=== PATIENT | male | born 1955 | race Caucasian/White ===

== ENCOUNTER 2019-02-26 07:40 | Inpatient (IN) | payer OTHER ==
[2019-02-26] VITALS (17 sets, daily range): BP systolic 101–159; BP diastolic 49–75
[~2019-02-26] VITALS: Ht 170.2 cm; Wt 66.8 kg
[~2019-02-26 07:40] MED LIST: ALDACTONE25 MG PO; ASPIRIN325 PO; CIPROFLOXACIN500 M3 PO; CRESTOR10 MG PO; EFFIENT10 MG PO; LISINOPRIL2.5 MG PO; NITROGLYCERIN0.4 MG
[2019-02-26 08:03] LABS: ABSOLUTE BASOPHILS 0.2 thou/uL (0.0-0.2); ABSOLUTE EOSINOPHILS 0.4 thou/uL (0.0-0.7); ABSOLUTE LYMPHOCYTES 5.4 thou/uL (0.8-5.3); ABSOLUTE MONOCYTES 1.2 thou/uL (0.0-1.2); ABSOLUTE NEUTROPHILS 4.5 thou/uL (1.6-8.1); BASOPHILS 1.5 %; EOSINOPHILS 3.5 %; HEMATOCRIT 45.2 % (42.0-52.0); HEMOGLOBIN 15.3 gm/dL (14.0-18.0); LYMPHOCYTES 45.9 %; MCH 33.2 pg (26.0-34.0); MCHC 33.8 g/dL (28.0-37.0); MCV 98.4 fL (80.0-100.0); MONOCYTES 10.3 %; NUCLEATED RBCS 0 /100WBC; PLATELET COUNT* 318 thou/uL (150-400); POLYS 38.8 %; RBC 4.59 mil/uL (4.50-6.00); RDW-CV 13.4 % (10.5-14.5); WBC 11.7 thou/uL (4.0-11.0)
[2019-02-26 08:15] LABS: APTT 21.4 Seconds (25.0-31.3); INR 1.1; PROTIME 10.9 Seconds (9.20-11.50)
[2019-02-26 08:55] LABS: ALBUMIN 2.7 g/dL (3.4-5.0); CALCIUM 7.9 mg/dL (8.5-10.1); CREATININE 1.1 mg/dL (0.6-1.3); MAGNESIUM 1.8 mg/dL (1.8-2.4); POTASSIUM 3.7 mmol/L (3.5-5.1); TOTAL BILIRUBIN 0.3 mg/dL (<0.1-1.0); TOTAL PROTEIN 5.3 g/dL (6.4-8.2)
--- NOTE | 2019-02-26 09:40 | NUR ---
PT ARRIVED TO ROOM ICU 6 VIA CART. GROIN SITE WITHOUT HEMATOMA OR BLEEDING. ANGIOSEAL IN PLACE. PLACED ON MONITOR-NSR. IVF INFUSING. PT INSTRUCTED ON BEDREST UNTIL 1308. CALL LIGHT WITHIN REACH. PT GIVEN URINAL
--- NOTE | 2019-02-26 17:10 | NUR ---
PT TO UNIT THIS AM FROM [facility]. PT REPORTS OCASSIONAL CHEST PAIN CONTROLLED WITH PO MEDS. NSR ON MONITOR. CATH SITE WITHOUT BLEEDING OR HEMATOMA. PT SITTING UP IN BED THIS PM. TOLERATING PO WELL. VOIDING PER URINAL
--- NOTE | 2019-02-26 17:10 | 2DMMODE ---
[place] [address] 2 D/M-MODE ECHOCARDIOGRAM Name: DANA RICO Room: 006P [facility] IN [facility]#: [id number] Admission: 02/26/19 Attend Phys: Winston Alatorre, Discharge: Date of : 53 Date of Service: 02/26/19 1710 Report #: [id number] THIS REPORT FOR: //name// APPROVED REPORT Study performed: 02/26/2019 10:26:01 EXAM: Comprehensive 2D, Doppler, and color-flow Echocardiogram Patient Location: In-Patient Room #: 006 Status: routine BSA: 1.78 HR: 73 bpm BP: 146/83 mmHg Rhythm: NSR Other Information Study Quality: Good Indications Acute FL 2D Dimensions IVSd: 11.56 (7-11mm) LVOT Diam: 19.91 (18-24mm) LVDd: 58.17 mm PWd: 9.75 (7-11mm) Ascending Ao: 36.12 (22-36mm) LVDs: 37.32 (25-40mm) Aortic Root: 33.16 mm Volumes Left Atrial Volume (Systole) LA ESV Index: 40.80 mL/m2 Aortic Valve AoV Peak Rolando.: 1.49 m/s AO Peak Gr.: 8.89 mmHg LVOT Max P.52 mmHg AO Mean Gr.: 4.59 mmHg LVOT Mean P.10 mmHg LVOT Max V: 1.06 m/s AO V2 VTI: 22.80 cm LVOT Mean V: 0.66 m/s OSWALD (VTI): 2.52 cm2 LVOT V1 VTI: 18.41 cm Mitral Valve E/A Ratio: 2.14 MV Decel. Time: 190.62 ms MV E Max Rolando.: 1.13 m/[place] [address] 2 D/M-MODE ECHOCARDIOGRAM Name: DANA RICO Room: [address] IN .R.#: [id number] Admission: 02/26/19 Attend Phys: Winston Alatorre, Discharge: Date of : 53 Date of Service: 02/26/19 1710 Report #: [id number] MV PHT: 55.28 ms MVA (PHT): 3.98 cm2 TDI E/Lateral E': 8.07 E/Medial E': 9.42 Medial E' Rolando.: 0.12 m/s Lateral E' Rolando.: 0.14 m/s Pulmonary Valve PV Peak Rolando.: 0.75 m/s PV Peak Gr.: 2.22 mmHg Tricuspid Valve RAP Estimate: 5.00 mmHg TR Peak Gr.: 21.01 mmHg RVSP: 26.00 mmHg PA Pressure: 26.00 mmHg Left Ventricle The left ventricle is normal size. There is normal LV segmental wall motion. There is normal left ventricular wall thickness. Left ventricular systolic function is normal. The left ventricular ejection fraction is within the normal range. LVEF is 60-65%. Right Ventricle The right ventricle is normal size. The right ventricular systolic function is normal. Atria Left atrium is mildly dilated. The right atrium size is normal. Aortic Valve Mild aortic valve sclerosis. No aortic regurgitation is present. There is no aortic valvular stenosis. Mitral Valve Mitral valve leaflets are mildly thickened. There is moderate mitral valve prolapse Moderate to severe mitral regurgitation No evidence of mitral valve stenosis. Posterior mitral valve leaflet prolapses. Tricuspid Valve The tricuspid valve is normal in structure. Mild tricuspid regurgitation. No pulmonary hypertension. Pulmonic Valve The pulmonary valve is normal in structure. [place] [address] 2 D/M-MODE ECHOCARDIOGRAM Name: DANA RICO AWILDA Room: [address] IN [facility]#: [id number] Admission: 02/26/19 Attend Phys: Winston Alatorre, Discharge: Date of : 53 Date of Service: 02/26/19 1710 Report #: [id number] regurgitation. Great Vessels The aortic root is normal in size. IVC is normal in size and collapses >50% with inspiration. Pericardium There is no pericardial effusion. <Conclusion> The left ventricle is normal size. There is normal left ventricular wall thickness. Left ventricular systolic function is normal. The left ventricular ejection fraction is within the normal range. LVEF is 60-65%. The right ventricle is normal size. Left atrium is mildly dilated. Mild aortic valve sclerosis. No aortic regurgitation is present. There is no aortic valvular stenosis. Mitral valve leaflets are mildly thickened. There is moderate mitral valve prolapse Moderate to severe mitral regurgitation No evidence of mitral valve stenosis. The tricuspid valve is normal in structure. IVC is normal in size and collapses >50% with inspiration. There is no pericardial effusion. There is normal LV segmental wall motion. Posterior mitral valve leaflet prolapses. <ELECTRONICALLY SIGNED> By: Philip Jama MD, FACC 02/26/191709 09 09 Philip Jama MD, FACC /INF
--- NOTE | 2019-02-26 18:05 | EKG ---
[place] [address] ELECTROCARDIOGRAM REPORT Name: JACKYDANA Room: [address] ADM IN M.R.#: [id number] Admission: 02/26/19 Attend Phys: Winston Alatorre MD Discharge: Date of : 53 Report #: [id number] THIS REPORT FOR: //name// [facility] ED Test Date: 2019-02-26 Test Time: 07:44:23 Pat Name: DANA RICO Department: Room: [facility] Gender: M Certified Nurses' Aide: EV : 1955 Requested By: Wicho Choudhury Order Number: [id number] MD: Angelo Duran Measurements Intervals [place] Rate: 63 P: 70 [place]: 141 QRS: 51 QRSD: 135 T: 53 QT: 466 QTc: 478 Interpretive Statements Sinus rhythm Right bundle branch block Compared to ECG 01/05/2011 08:03:12 Right bundle-branch block now present T-wave abnormality no longer present Possible ischemia no longer present Electronically Signed On 02-26-2019 18:04:54 CDT by Angelo Duran [email or web address] <ELECTRONICALLY SIGNED> By: Angelo Duran MD, FACC 02/26/19 1804 0744 0744 Angelo Duran MD, [facility] /EPI
--- NOTE | 2019-02-26 18:06 | EKG ---
[place] [address] ELECTROCARDIOGRAM REPORT Name: JACKYDANA Room: [address] ADM IN M.R.#: [id number] Admission: 02/26/19 Attend Phys: Winston Alatorre MD Discharge: Date of : 53 Report #: [id number] THIS REPORT FOR: //name// [facility] Test Date: 2019-02-26 Test Time: 09:55:19 Pat Name: DANA RICO Department: Room: [address] Gender: M Taxation Consultant: : 1955 Requested By: Winston Alatorre Order Number: [id number] Marivel MD: Angelo Duran Measurements Intervals [place] Rate: 71 P: 65 [place]: 161 QRS: 45 QRSD: 134 T: 31 QT: 429 QTc: 467 Interpretive Statements Sinus rhythm Right bundle branch block Electronically Signed On 02-26-2019 18:06:03 CDT by Angelo Duran [email or web address] <ELECTRONICALLY SIGNED> By: Angelo Duran MD, [facility] 02/26/19 1806 0955 0955 Angelo Duran MD, FACC /EPI
[2019-02-26] MEDS ORDERED: FISH OIL 1,0001 EAC9 PO (19:06)
[2019-02-26] MEDS ORDERED: MULTI VITAMIN1 EACH PO (19:06)
[2019-02-26] MEDS ORDERED: VITAMIN B-121000 MC2 SUBLING (19:10)
[2019-02-27] VITALS (9 sets, daily range): BP systolic 92–116; BP diastolic 56–70
--- NOTE | 2019-02-27 05:25 | NUR ---
ASSUMED CARE AT 1900H, ON ROOM AIR AND TOLERATED. NO CHEST PAIN NOTED. PT HAD ONLY BACK NECK AND RIGHT SHOULDER PAIN, PRN MED GIVEN. PT EXPRESSED HE WANTED TO GO HOME TODAY. NO BLEEDING AND HEMATOMA NOTED AT THE PUNCTURE SITE. CONTINUE MONITORING AND TOWARD GOALS. CALLLIGHT WITHIN REACH.
--- NOTE | 2019-02-27 10:50 | NUR ---
PATIENT LEFT AMA ADVISED TO STAY NEEDS FURTHER WORKUP FOR LAD STENOSIS ADVISED OF EXTREME MORBITITY. 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
--- NOTE | 2019-02-27 11:14 | NUR ---
ICU rounds: Pt choosing to dc AMA. SW met with pt to provide community resources/financial resources. Pt was receptive to information.
--- NOTE | 2019-02-27 11:40 | NUR ---
DR MARISCAL ATTEMPTED CONTACT WITH PATIENT TO GIVE PRESCRIPTIONS FROM OFFICE.
--- NOTE | 2019-02-27 12:03 | H ---
[address] [address] HISTORY AND PHYSICAL Name: JACKYDANA AWILDA Room: [address] IN M.R.#: [id number] Admission: 02/26/19 Attend Phys: Winston Alatorre MD Discharge: 02/27/19 Date of : 53 Report #: [id number] THIS REPORT FOR: //name// CC: [facility] physician/PCP Winston Alatorre CARDIOLOGY ADMISSION HISTORY AND PHYSICAL INDICATION: Acute inferior wall ST-elevation myocardial infarction. HISTORY OF PRESENT ILLNESS: The patient is a 63-year-old gentleman with history of coronary artery disease. He has had previous percutaneous coronary intervention and stent placement to the proximal circumflex coronary artery. The patient has been having intermittent chest pain for the last 2 days. This morning, the pain was midsternal and radiated to his back and left arm. He called EMS. EKG on scene showed acute inferior wall ST-elevation myocardial infarction. The patient was brought to the Emergency Room and promptly brought to the cardiac catheterization lab. He was found to have a 99% stenosis of the mid dominant circumflex coronary artery, for which he underwent drug-eluting stent placement. Distal margin required a second stent. The patient had excellent angiographic result and resolution of the majority of his discomfort. The patient was transferred to the ICU for continued evaluation. Of note, the catheterization showed significant mid LAD disease, to be addressed in staged fashion. CARDIAC RISK FACTORS: Hyperlipidemia. PAST MEDICAL HISTORY: 1. Coronary artery disease. 2. Hyperlipidemia. 3. Double hernia surgery in 1984. 4. Sinus surgery in 1999. 5. Skin cancer removal 6 months ago. CURRENT MEDICATIONS: None. ALLERGIES: None. FAMILY HISTORY: Noncontributory. SOCIAL HISTORY: The patient denies use of tobacco or alcohol. REVIEW OF SYSTEMS: The patient reports chest pain. PHYSICAL EXAMINATION: VITAL SIGNS: Blood pressure 101/61, pulse 64[place] [address] HISTORY AND PHYSICAL Name: DANA RICO AWILDA Room: [address]#: [id number] Admission: 02/26/19 Attend Phys: Winston Alatorre MD Discharge: 02/27/19 Date of : 53 Report #: [id number] GENERAL: This is a 63-year-old gentleman who appears in acute discomfort on arrival, now comfortable. HEENT: Extraocular muscles intact. Mucous membranes are moist. NECK: Shows no jugular venous distention. There are no carotid bruits. CHEST: Reveals clear lung renner. CARDIOVASCULAR: Reveals regular rhythm without gallop or murmur. ABDOMEN: Reveals normal bowel sounds. The abdomen is soft, nontender. EXTREMITIES: Shows no edema. Peripheral pulses 2+ and palpable. IMPRESSION AND RECOMMENDATIONS: 1. Acute inferior wall ST-elevation myocardial infarction, status post drug-eluting stent placement. We will start Plavix and aspirin. We will obtain echocardiogram to evaluate underlying cardiac structure and function. We will start low dose beta-gilmar as tolerated. 2. Dyslipidemia. Start atorvastatin 40 mg daily. <ELECTRONICALLY SIGNED> By: Winston Alatorre MD, FACC 02/27/19 1203 0944 [id number] Alatorre MD, FACC /nt
--- NOTE | 2019-03-13 15:07 | CARD ---
[address] [address] CARDIAC CATH REPORT Name: DANA RICO AWILDA Room: [address] IN [facility]#: [id number] Admission: 02/26/19 Attend Phys: Winston Alatorre MD Discharge: 02/27/19 Date of : 53 Report #: [id number] THIS REPORT FOR: //name// ADDENDUM APPROVED REPORT Study performed: 02/26/2019 07:38:34 Patient Details Patient Status: In-Patient Room #: The patient is a 63 year-old male Event Personnel Winston Alatorre Literacy Consultant, Philip Jama Utility Maintenance Worker, Abby Rubio RN Hand Packer/Packager, Ghanshyam Obrien Scrub, Marta Marquez RTR Monitor, Silke Diop Hand Packer/Packager Procedures Performed Art Access - R femoral artery, Left Heart Cath w/or w/o Coronaries , LHC MING Place w/wo Plasty Single OM, Hemostasis w/ Angioseal Indication Abnormal ECG, Non-STEMI Admission/Lab Medications/Medications given during procedure Oxygen Nasal cannula 2 l per min, Heparin IV 5000 units, Lidocaine Subcut 15 ml, Angiomax IV bolus 10 mg per kg, Angiomax Drip IV 23.1 ml per hr, Fentanyl IV 50 mcg total, Plavix PO 600 mg, Aspirin PO 162 mg Procedure Narrative The patient was brought emergently to the Cardiac Catheterization Laboratory and was prepped and draped in a sterile manner. The right femoral was infiltrated with 2% Lidocaine subcutaneous anesthesia. A 6F [place] sheath was inserted into the right femoral artery. Coronary angiography was performed using coronary diagnostic catheters. The right coronary system was accessed and visualized with a 5F JL4 catheter. The left coronary system was accessed and visualized with a 5F JR4 catheter. The left ventricle was accessed and visualized with a 5F PIGTAIL catheter. The patient tolerated the procedure well and there were no complications associated with the procedure. Intraoperative Conscious Sedation Sedation start time: 08:18 Case end Time: [place] [address] CARDIAC CATH REPORT Name: DANA RICO Room: [address] IN [facility].#: [id number] Admission: 02/26/19 Attend Phys: Winston Alatorre MD Discharge: 02/27/19 Date of : 53 Report #: [id number] 09:07 Fentanyl 50 mcg Fluoro Time: 19.3 minutes Dose: DAP 560459 cGycm2 1644 mGy Contrast Type and Amount: Visipaque 380 ml Diagnostic Cath Left Main Normal. LAD Moderately plaqued proximally. There is a 90% stenosis after the takeoff of a second diagonal branch. Diagonal 1 Free of significant disease. Diagonal 2 Free of significant disease. Circumflex There is a widely patent stents in the proximal circumflex after which there is a 90% stenosis of the mid circumflex coronary artery. Tubular 70 percent narrowing of the distal circumflex. OM1 Preoperative significant disease. OM2 Free of significant disease. L PDA Free of significant disease. L MUSA Previous significant disease. Right Coronary Nondominant. Normal. Left Ventriculography Ejection Fraction was 55-60% based off patient's . Hemodynamics The aortic pressure is 116/59 mmHg with a mean of 84 mmHg. The left ventricular pressure is 105 mmHg with a mean of mmHg. The left ventricular end diastolic pressure is 10 mmHg. PCI Technique Lesion Anticoagulation was achieved with Heparin. Patient was preloaded with Heparin IV 5000 units. Percutaneous coronary intervention was performed on the second obtuse marginal branch segment. The lesion stenosis prior to intervention was 90% with TABBY 2 flow. A 6FR LAUNCHER EBU 3.5 Guide Catheter was used to engage the ostium. A BMW 190cm Interventional Guidewire was used to cross the lesion. BALLOON DILATION A Balloon catheter Mini Trek RX 2.0 X 12 was inserted and inflated up to 15.00atm for 14seconds. Additional Inflation: 14.00atm for 7seconds. Additional Inflation: 17.00atm for 9seconds. 2ND INTERVENTIONAL WIRE PROWATERFLEX 180CM ADVANCED [place] [address] CARDIAC CATH REPORT Name: DANA RICO Room: [address] IN M.R.#: [id number] Admission: 02/26/19 Attend Phys: Winston Alatorre MD Discharge: 02/27/19 Date of : 53 Report #: [id number] STENT DEPLOYMENT A drug-eluting stent Resolute [place] RX 2.5X18,2.25x8 was inserted and inflated up to 15atm for 14seconds. Additional Inflation: 15.00atm for 7seconds. Additional Inflation: 16.00atm for 8seconds. POST STENT DEPLOYMENT BALLOON DILATION A Balloon catheter Mini Trek RX 2.0 X 8 was inserted and inflated up to 12.00atm for 6seconds. Additional Inflation: 10.00atm for 4seconds. Additional Inflation: 14.00atm for 6seconds. Final angiography reveals 0 % stenosis with TABBY 3 flow. POST STENT DEPLOYMENT BALLOON DILATION A Balloon catheter was inserted and inflated up to 18.00atm for 11seconds. Additional Inflation: gabriela for 6seconds. PCI Technique Lesion 2 Percutaneous Coronary Intervention was performed on the mid circumflex artery segment. The lesion stenosis prior to intervention was 90% with TABBY 2 flow. Stent Deployment A drug-eluting stent Resolute RX 2.5X8 was inserted and inflated up to 16atm for 15seconds. Post Stent Deployment Balloon Dilation A Balloon catheter NC Trek RX 2.75 X 8 was inserted and inflated up to 16atm for 10seconds. Final angiography reveals 5 % stenosis with TABBY 3 flow. PCI Technique Lesion Percutaneous coronary intervention was performed on the distal circumflex artery segment. The lesion stenosis prior to intervention was 90% with TABBY 2 flow. BALLOON DILATION A Balloon catheter Mini Trek RX 2.0 X 8 was inserted and inflated up to 16atm for 15seconds. Final angiography reveals 20 % stenosis with TABBY 3 flow. Conclusion 1. Critical narrowing of the proximal circumflex coronary artery after a patent stent. (Culprit lesion) [address] [address] CARDIAC CATH REPORT Name: DANA RICO Room: [address] IN M.R.#: [id number] Admission: 02/26/19 Attend Phys: Winston Alatorre MD Discharge: 02/27/19 Date of : 53 Report #: [id number] 2. 90% narrowing of the mid left anterior descending coronary artery. 3. Nondominant right coronary artery. 4. Preserved left ventricular systolic function. 5. Normal left ventricular end-diastolic pressure. 6. Widely patent stent in the proximal circumflex coronary artery. 7. Successful PCI to the mid CX into a prominent 2nd marginal with 0% residual after MING deployment 8. Successful PTCA of the distal CX thru the mid CX stent with 20% residual marrowing Recommendations 1. Aggressive medical management and risk factor modification. 2. Percutaneous coronary intervention to the proximal circumflex coronary artery. 3. Consider staged procedure to the mid left anterior descending coronary artery. Medications Administered Aspirin (any) Prasugrel Diagnostic Cath Approved by: Winston Alatorre MD Date/Time: 02/26/2019 17:45:49 <ELECTRONICALLY SIGNED> By: Philip Jama MD, FACC 03/13/19 1506 1506 1506Philip Jama MD, FAC /INF
== END 2019-02-27 10:30 | disposition left against medical advice (07) | DRG 247 ==
LOC: M.ERS 07:40 → M.ICU 08:08 → M.TBA-CV 08:08 → M.ICU 09:32
PROVIDERS: Emergency Medicine Emergency Medical Services; ADMIT Internal Medicine Cardiovascular Disease
DX: I21.19 ST elevation (STEMI) myocardial infarction involving other coronary artery of inferior wall (principal); I25.2 Old myocardial infarction; E78.5 Hyperlipidemia, unspecified; I25.10 Atherosclerotic heart disease of native coronary artery without angina pectoris; Z95.5 Presence of coronary angioplasty implant and graft; Z85.828 Personal history of other malignant neoplasm of skin

== ENCOUNTER 2019-05-10 18:30 | Inpatient (IN) | payer OTHER ==
[~2019-05-10] VITALS: Ht 170.2 cm; Wt 70.8 kg
[~2019-05-10 18:30] MED LIST changes: +FISH OIL 1,0001 EAC9 PO; +MULTI VITAMIN1 EACH PO; +VITAMIN B-121000 MC2 SUBLING
[2019-05-10 18:32] VITALS: BP 120/81
[2019-05-10 19:24] LABS: ABSOLUTE BASOPHILS 0.1 thou/uL (0.0-0.2); ABSOLUTE EOSINOPHILS 0.3 thou/uL (0.0-0.7); ABSOLUTE LYMPHOCYTES 2.7 thou/uL (0.8-5.3); ABSOLUTE MONOCYTES 1.1 thou/uL (0.0-1.2); ABSOLUTE NEUTROPHILS 8.9 thou/uL (1.6-8.1); BASOPHILS 0.8 %; EOSINOPHILS 2.4 %; HEMATOCRIT 43.8 % (42.0-52.0); LYMPHOCYTES 20.4 %; MCH 32.8 pg (26.0-34.0); MCHC 34.3 g/dL (28.0-37.0); MCV 95.8 fL (80.0-100.0); MONOCYTES 8.5 %; MPV 9.7 fl. (7.2-11.1); NUCLEATED RBCS 0 /100WBC; PLATELET COUNT* 231 thou/uL (150-400); POLYS 67.9 %; RBC 4.57 mil/uL (4.50-6.00); RDW-CV 13.2 % (10.5-14.5); WBC 13.1 thou/uL (4.0-11.0)
[2019-05-10 19:43] LABS: CALCIUM 8.6 mg/dL (8.5-10.1); CREATININE 1.6 mg/dL (0.6-1.3); POTASSIUM 4.4 mmol/L (3.5-5.1)
[2019-05-10 19:56] LABS: ALBUMIN 3.3 g/dL (3.4-5.0); MAGNESIUM 1.6 mg/dL (1.8-2.4); TOTAL BILIRUBIN 0.6 mg/dL (<0.1-1.0); TOTAL PROTEIN 6.4 g/dL (6.4-8.2)
[2019-05-10 22:33] VITALS: BP 105/74
[2019-05-10 22:52] VITALS: BP 105/66
[2019-05-10 23:00] VITALS: BP 95/64
[2019-05-11] VITALS (25 sets, daily range): BP systolic 88–120; BP diastolic 43–71
--- NOTE | 2019-05-11 00:03 | NUR ---
PT. ADMITTED TO ROOM 2 AT 2240, AMIODARONE GTT INFUSING. PT. IS ALERT AND ORIENTED, ABLE TO AMBULATE STAND BY ASSIST. PT. STATED HE IS "TERRIFIED" OF NEEDLES AND LEFT AMA LAST HOSPITAL STAY IN JANUARY DUE TO ALL THE NEEDLESTICKS, STATED HE JUST GOT UP AND LEFT BECAUSE HE HAD HAD ENOUGH. INFORMED HIM THAT WE WILL DO ALL WE CAN TO AVOID ANY UNNECCESSARY NEEDLESTICKS. PT. IS SINUS RHYTHM ON HELP DESK ANALYST SINCE ADMISSION TO ICU. ADMISSION ASSESSMENT/INFORMATION COMPLETE, SEE COMPUTER CHARTING. ORIENTED TO ROOM. WILL CONTINUE TO MONITOR.
[2019-05-11 09:48] LABS: ANION GAP 9 mmol/L (7-16); BUN 14 mg/dL (7-18); CALCIUM 7.5 mg/dL (8.5-10.1); CHLORIDE 107 mmol/L (98-107); CHOLESTEROL 98 mg/dL (<200); CO2 25 mmol/L (21-32); CREATININE 1.1 mg/dL (0.6-1.3); GLUCOSE 98 mg/dL (70-99); HDL CHOLESTEROL 39 mg/dL (>40); LDL CHOLESTEROL 36 mg/dL (<100); MAGNESIUM 2.1 mg/dL (1.8-2.4); POTASSIUM 3.8 mmol/L (3.5-5.1); SODIUM 141 mmol/L (136-145); TC:HDL 2.5 Ratio (Not establshd); TRIGLYCERIDE 115 mg/dL (<150); TROPONIN-I LEVEL 0.15 ng/mL (<0.06); VLDL 23 mg/dL (<40)
[2019-05-11 10:03] LABS: SERUM ASSESSMENT Clear
--- NOTE | 2019-05-11 11:07 | NUR ---
CM ASSESSMENT: VISITED WITH PT IN ROOM. PT STATES HE LIVES BY HIMSELF. HE REPORTS HE HAS NOT WORKED SINCE JAN WHEN HE WAS IN THE HOSPITAL. HE SAYS " I KNOW THAT I NEED TO GO TO THE MEDICARE OFFICE AND FILE FOR SSI BUT I AM TOO DEPRESSED TO EVEN GET OUT OF BED". PT REPORTS HE HAS BEEN SELLING A FEW CARS THAT HE OWNED TO PAY HIS RENT AND BUY MEDICATIONS. PT STATES THAT HE HAS HAD LEFT ARM NUMBNESS/TINGLING,LEFT FACIAL WEAKNESS AND "CONFUSION" INTERMITTENTLY FOR THE LAST 4 DAYS AND BLOOD IN HIS STOOLS. STATES HE FORGOT TO TELL DR TOMLINSON THIS AM. DR TOMLINSON AND NURSE DEA NOTIFIED. PT REPORTS LEFT LEG PAIN FOR THE LAST 2 MONTHS THAT EFFECTS HIS ABILITY TO PERFORM ADLS AND HIS ABILITY TO AMBULATE LONGER DISTANCES. PT REPORTS ANXIETY OVER RELATIONSHIP WITH HIS DAUGHTER AND HIS HEALTH CONCERNS "I KNOW I AM PROBABLY DYING OF CANCER". PT REPORTS HE IS COMPLIANT WITH ALL OF HIS MEDICATIONS BUT IS CONCERNED THAT "THE LITTLE WHITE ONE" MAKES HIM COUGH. WILL CALL PHARMACY TO VERIFY MEDS.
--- NOTE | 2019-05-11 11:13 | EKG ---
[place] [address] ELECTROCARDIOGRAM REPORT Name: JACKYDANAADONAY KAISER Room: [address] ADM IN M.R.#: [id number] Admission: 05/10/19 Attend Phys: Pablito Marrero Discharge: Date of : 53 Report #: [id number] THIS REPORT FOR: //name// [facility] ED Test Date: 2019-05-10 Test Time: 18:30:15 Pat Name: DANA RICO Department: Room: [facility] Gender: M Emergency Medical Technician/Driver: : 1955 Requested By: Wicho Choudhury Order Number: [id number] MD: Angelo Duran Measurements Intervals [place] Rate: 143 P: [place]: QRS: 48 QRSD: 121 T: 4 QT: 313 QTc: 483 Interpretive Statements Atrial fibrillation with pvc Right bundle branch block Borderline ST depression, lateral leads Compared to ECG 02/26/2019 09:55:19 ST (T wave) deviation now present Sinus rhythm no longer present Electronically Signed On 05-11-2019 11:12:51 BIOLOGY FACULTY MEMBER by Angelo Duran [email or web address] <ELECTRONICALLY SIGNED> By: Angelo Duran MD, FAC 05/11/19 1112 1830 1830 Angelo Duran MD, [facility] /EPI
--- NOTE | 2019-05-11 11:20 | EKG ---
[place] [address] ELECTROCARDIOGRAM REPORT Name: JACKYDANA Room: [address] ADM IN M.R.#: [id number] Admission: 05/10/19 Attend Phys: Pablito Marrero Discharge: Date of : 53 Report #: [id number] THIS REPORT FOR: //name// [facility] Test Date: 2019-05-11 Test Time: 07:56:12 Pat Name: DANA RICO Department: Room: [address] Gender: M Burnisher And Bumper: : 1955 Requested By: Ghanshyam Mcmahon Order Number: [id number] Marivel MD: Angelo Duran Measurements Intervals [place] Rate: 57 P: 60 [place]: 169 QRS: 27 QRSD: 135 T: -18 QT: 471 QTc: 459 Interpretive Statements Sinus bradycardia Right bundle branch block Electronically Signed On 05-11-2019 11:19:45 PHOTOSTAT OPERATOR HELPER by Angelo Duran [email or web address] <ELECTRONICALLY SIGNED> By: Angelo Duran MD, [facility] 05/11/19 1119 0756 0756 Angelo Duran MD, FACC /EPI
[2019-05-11] MEDS ORDERED: PLAVIX 75 MG TA75 M1 PO (11:49)
[2019-05-11] MEDS ORDERED: METOPROLOL TART25 MG PO (11:50)
[2019-05-11] MEDS ORDERED: LIPITOR40 MG PO (11:50)
[2019-05-11] MEDS ORDERED: NITROGLYCERIN0.4 MG SUBLING (11:51)
[2019-05-11] MEDS ORDERED: ZANTAC 150MG T150 M1 PO (11:52)
[2019-05-11 16:40] LABS: URINE BILIRUBIN NEGATIVE (Negative); URINE BLOOD NEGATIVE (Negative); URINE CLARITY CLEAR; URINE COLOR YELLOW; URINE GLUCOSE-RANDOM NEGATIVE (Negative); URINE KETONES NEGATIVE (Negative); URINE LEUKOCYTES-REFLEX NEGATIVE (Negative); URINE NITRITE-REFLEX NEGATIVE (Negative); URINE PROTEIN NEGATIVE (Negative); URINE UROBILINOGEN 0.2 E.U./dl (0.2-1.0)
--- NOTE | 2019-05-11 18:56 | NUR ---
VSS, ASSUMED CARE OF PT FROM ICU, PT IN BED WITH CALL LIGHT IN REACH,
[2019-05-12] VITALS (7 sets, daily range): BP systolic 101–125; BP diastolic 58–74
--- NOTE | 2019-05-12 03:14 | NUR ---
PT ALERT ORIENTED. TELE PSYC CONSULT TOOK PLACE THIS SHIFT IN ROOM. TYLENOL GIVEN FOR PAIN. NIHSS 1. PT HAD SOME FACIAL NUMBNESS. HE SAID HE WAS HAVING TROUBLE MOVING HIS MOUTH. NO ABNORMALITIES NOTED. SMILE STRAIGHT NO FLATNING OF THE NASOLABIAL FOLD. PT STATES ANXIETY. PT STATES HIS PRIMARY DR TWO YEARS AGO AND HE HAS NOT HAD A PRIMARY DOCTOR SINCE THEN. TELEMETRY SHOW SR. GABRIELA.
--- NOTE | 2019-05-12 18:33 | NUR ---
PT IS RESTING COMFORTABLY AT THIS TIME. PT DID HAVE AN EPISODE OF CP THAT WAS RELIEVED WITH REST. PHYSICIAN ORDERED SERIAL TROP AND PRN NITRO. PT APPEARS TO BE ANXIOUS. PT REPORTS THAT HE WOULD LIKE TO REST TONIGHT AND NOT BE DISTURBED BETWEEN [phone]. FALL PRECAUTIONS IN PLACE
[2019-05-13] VITALS: BP 135/65
--- NOTE | 2019-05-13 02:38 | NUR ---
PT ALERT ORIENTED. UP AD JESUS IN ROOM. DENIES PAIN AT SHIFT CHG. PT REQUESTING NO VITALS AT SD. COMPROMISED FOR VS AT 2300. MELATONIN AND BENADRYL GIVEN JUST PRIOR TO 2300. PT APPEARS TO BE SLEEPING. TELEMETRY SHOWS SR/SB BBB. WCTM
[2019-05-13 03:57] VITALS: BP 110/61
[2019-05-13 08:00] VITALS: BP 113/62
[2019-05-13] MEDS ORDERED: ELIQUIS5 MG PO (09:12)
[2019-05-13] MEDS ORDERED: SERTRALINE HCL50 MG PO (09:12)
[2019-05-13] MEDS ORDERED: PACERONE 200 M200 M1 PO (09:12)
[2019-05-13] MEDS ORDERED: CLOPIDOGREL75 MG PO (09:12)
[2019-05-13] MEDS ORDERED: LORAZEPAM 0.50.5 MG PO (09:12)
[2019-05-13] MEDS ORDERED: TRAZODONE HCL100 MG PO (09:12)
--- NOTE | 2019-05-13 10:31 | NUR ---
PT IS RESTING IN BED. PT STILL APPEARS TO BE ANXIOUS. DENIES PAIN. AOX4. VSS ON RA.PT IS STEADY WITHOUT ASSIST.PT TO BE DISCHARGED TODAY. MEDICATIONS GIVEN ALONG WITH NEW MEDS.
[2019-05-13 10:47] VITALS: BP 125/72
--- NOTE | 2019-05-13 12:28 | NUR ---
pt discharged to home in stable condition. prescritptions,treatments,follow up care and medication side effects reviewed with pt and pt reports understanding without further questions.
--- NOTE | 2019-05-14 11:20 | CON ---
[address] [address] CONSULTATION Name: JACKYDANA Room: [address] M.R.#: [id number] Admission: 05/10/19 Attend Phys: Pablito Marrero Discharge: 05/13/19 Date of : 53 Report #: [id number] THIS REPORT FOR: //name// CC: VITA physician/PCP Arnulfo Stanford DATE OF SERVICE: 05/11/2019 HISTORY OF PRESENT ILLNESS: The patient is a 64-year-old white male, who I was asked to see in the hospital today after he complained of chest pain. The patient states his first stent was placed here at [place] back in 2010. He then presented in 01/2019 with chest pain. He had a repeat heart catheterization by Dr. Jama. The results showed a 90% narrowing of the LAD. The circumflex had a stent that is widely patent, although there is a 90% narrowing of the mid circumflex. The right coronary was nondominant, had no significant disease. Dr. Jama then placed stents in the circumflex and LAD. He has been on Plavix since that time. He has done well since that time. He notes, however, that yesterday he was at home when he felt a discomfort in his chest, his heart was racing, he felt short of breath and nauseated. An ambulance brought him here to [place]. He was noted to be in atrial fibrillation. He was placed on IV amiodarone. He converted to a sinus rhythm. I was asked to see him for further evaluation and treatment. He denies any syncope. He does get short of breath when he exerts himself. PAST MEDICAL HISTORY: He has had sinus surgery, knee surgery, hyperlipidemia. MEDICATIONS: Include aspirin, Plavix, statin drug. ALLERGIES: He has no known drug allergies. FAMILY HISTORY: Negative for heart disease. SOCIAL HISTORY: He is . He lives by himself in [place]. 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 He does not smoke anymore. No alcohol abuse. REVIEW OF SYSTEMS: He has had no history of stroke, asthma, liver disease, kidney disease. He has noticed some blood in his stool. No skin problems. No psychiatric illness. PHYSICAL EXAMINATION: GENERAL: Revealed a middle-aged male, lying in bed, appeared in no distress. VITAL SIGNS: Blood pressure 100/60, pulse 60. He is afebrile. HEENT: He is anicteric. Conjunctivae pink. Mucous membranes moist. NECK: Veins are nondistended. No carotid bruits. CHEST: Clear to auscultation. CARDIAC: [place] [address] CONSULTATION Name: DANA RICO Room: [address]#: [id number] Admission: 05/10/19 Attend Phys: Pablito Marrero Discharge: 05/13/19 Date of : 53 Report #: [id number] ABDOMEN: Soft. EXTREMITIES: Had no edema. SKIN: Warm and dry. NEUROLOGIC: Nonfocal. ECG on admission showed atrial fibrillation with occasional PVC, right bundle-branch block. Currently, the patient appears to be in sinus rhythm. His laboratory last night: He had a chest x-ray that showed normal heart size and clear lung renner. LABORATORY DATA: Sodium 141, creatinine 1.1. His liver function studies were normal. Troponin 0.15. TSH 1.2. White blood cell count 13.1, hemoglobin 15. IMPRESSION AND RECOMMENDATIONS: 1. Chest pain. Suspect secondary to atrial fibrillation. 2. Atrial fibrillation. I would recommend starting the patient on sotalol. 3. Previous coronary stent. I will continue aspirin and Plavix. 4. Hyperlipidemia. The patient is on a statin drug. 5. Previous tobacco abuse. <ELECTRONICALLY SIGNED> By: Angelo Duran MD, FACC 05/14/19 1120 1339 [id number] Duran MD, FACC /nt
--- NOTE | 2019-05-14 17:04 | EKG ---
[place] [address] ELECTROCARDIOGRAM REPORT Name: JACKYDANAADONAY KAISER Room: [address] DIS IN M.R.#: [id number] Admission: 05/10/19 Attend Phys: Pablito Marrero Discharge: 05/13/19 Date of : 53 Report #: [id number] THIS REPORT FOR: //name// [facility] Test Date: 2019-05-12 Test Time: 14:07:46 Pat Name: DANA RICO Department: Room: [facility] Gender: M Twist Tester: DARWIN : 1955 Requested By: Angelo Duran Order Number: [id number] Marivel MD: Winston Alatorre Measurements Intervals [place] Rate: 66 P: 47 NE: 165 QRS: 16 QRSD: 136 T: -19 QT: 450 QTc: 472 Interpretive Statements Sinus rhythm Right bundle branch block Low voltage limb leads Baseline wander in lead(s) I Compared to ECG 05/11/2019 07:56:12 Sinus bradycardia no longer present Electronically Signed On 05-14-2019 17:03:28 OCCUPATIONAL HEALTH AND SAFETY MANAGER by Winston Alatorre [email or web address] <ELECTRONICALLY SIGNED> By: Winston Alatorre MD, FACC 05/14/19 1703 1407 1407 Winston Alatorre MD, [facility] /EPI
== END 2019-05-13 12:15 | disposition home or self-care (01) | DRG 280 ==
LOC: M.ERS 18:30 → M.TBA-ER 20:19 → M.ERS 20:19 → M.TBA-ER 21:43 → M.ICU 21:43 → M.2W 05-11 17:21
PROVIDERS: Emergency Medicine Emergency Medical Services; Internal Medicine; ADMIT Internal Medicine
DX: I21.A1 Myocardial infarction type 2 (principal); N17.0 Acute kidney failure with tubular necrosis; I50.31 Acute diastolic (congestive) heart failure; J44.1 Chronic obstructive pulmonary disease with (acute) exacerbation; E87.2 Acidosis; L03.116 Cellulitis of left lower limb; L03.115 Cellulitis of right lower limb; E78.5 Hyperlipidemia, unspecified; I48.91 Unspecified atrial fibrillation; E83.42 Hypomagnesemia; I25.10 Atherosclerotic heart disease of native coronary artery without angina pectoris; I11.0 Hypertensive heart disease with heart failure; I34.1 Nonrheumatic mitral (valve) prolapse; R00.1 Bradycardia, unspecified; T50.905A Adverse effect of unspecified drugs, medicaments and biological substances, initial encounter; E11.40 Type 2 diabetes mellitus with diabetic neuropathy, unspecified; I87.8 Other specified disorders of veins; E11.65 Type 2 diabetes mellitus with hyperglycemia; R00.0 Tachycardia, unspecified; G47.00 Insomnia, unspecified; F41.1 Generalized anxiety disorder; I27.20 Pulmonary hypertension, unspecified; E66.9 Obesity, unspecified; F03.90 Unspecified dementia, unspecified severity, without behavioral disturbance, psychotic disturbance, mood disturbance, and anxiety; R33.9 Retention of urine, unspecified; Y92.89 Other specified places as the place of occurrence of the external cause; I25.2 Old myocardial infarction; Z95.5 Presence of coronary angioplasty implant and graft; Z68.24 Body mass index [BMI] 24.0-24.9, adult

== ENCOUNTER → 2021-02-25 | Outpatient (CLI) | payer OTHER, MEDICAID ==
[~2021-02-25] MED LIST changes: +AMIODARONE PO; +ASA81BEC PO; +CLOPIDOGREL75 MG PO; +ELIQUIS5 MG PO; +LASIX 40 MG TAB40 MG PO; +LIPITOR40 MG PO; +LORAZEPAM 0.50.5 MG PO; +MELATONIN5 MG SUBLING; +METOPROLOL TART25 MG PO; +NEURONTIN100 MG PO; +NITROGLYCERIN0.4 MG SUBLING; +PACERONE 200 M200 M1 PO; +PLAVIX 75 MG TA75 M1 PO; +PROTONIX40 M4 PO; +SERTRALINE HCL50 MG PO; +TRAZODONE HCL100 MG PO; +ZANTAC 150MG T150 M1 PO; +flexeril PO
== END ==
LOC: M.PC 08:26
PROVIDERS: ATTEND Physical Medicine & Rehabilitation
DX: M43.12 Spondylolisthesis, cervical region (principal); M43.17 Spondylolisthesis, lumbosacral region; M47.26 Other spondylosis with radiculopathy, lumbar region; M48.061 Spinal stenosis, lumbar region without neurogenic claudication; M43.16 Spondylolisthesis, lumbar region; M54.50 Low back pain, unspecified; M79.605 Pain in left leg; M16.12 Unilateral primary osteoarthritis, left hip

== ENCOUNTER → 2021-03-04 | Outpatient (CLI) | payer OTHER, MEDICAID ==
[~2021-03-04] MED LIST changes: +IBUPROFEN200 MG PO; +PRILOSEC OTC20 MG PO
== END | disposition home or self-care (01) ==
LOC: M.PC 10:26
PROVIDERS: ATTEND Physical Medicine & Rehabilitation
DX: M54.59 Other low back pain (principal); M51.16 Intervertebral disc disorders with radiculopathy, lumbar region; M47.26 Other spondylosis with radiculopathy, lumbar region; M43.16 Spondylolisthesis, lumbar region; M79.605 Pain in left leg; M50.30 Other cervical disc degeneration, unspecified cervical region; M47.892 Other spondylosis, cervical region; I10 Essential (primary) hypertension; E11.9 Type 2 diabetes mellitus without complications; E78.5 Hyperlipidemia, unspecified; I48.91 Unspecified atrial fibrillation; I25.2 Old myocardial infarction; Z98.890 Other specified postprocedural states; Z79.899 Other long term (current) drug therapy; Z95.1 Presence of aortocoronary bypass graft; Z79.01 Long term (current) use of anticoagulants

== ENCOUNTER 2021-03-17 12:32 | Emergency (ER) | payer OTHER, MEDICAID ==
[~2021-03-17] VITALS: Ht 170.2 cm; Wt 70.3 kg
[2021-03-17 12:50] LABS: ABSOLUTE BASOPHILS 0.1 thou/uL (0.0-0.2); ABSOLUTE EOSINOPHILS 0.2 thou/uL (0.0-0.7); ABSOLUTE MONOCYTES 0.7 thou/uL (0.0-1.2); ABSOLUTE NEUTROPHILS 4.9 thou/uL (1.6-8.1); BASOPHILS 1.3 %; EOSINOPHILS 2.9 %; HEMATOCRIT 43.1 % (42.0-52.0); HEMOGLOBIN 14.4 gm/dL (14.0-18.0); LYMPHOCYTES 25.3 %; MCH 29.7 pg (26.0-34.0); MCHC 33.4 g/dL (28.0-37.0); MONOCYTES 8.4 %; MPV 8.3 fl. (7.2-11.1); NUCLEATED RBCS 0 /100WBC; PLATELET COUNT* 256 thou/uL (150-400); POLYS 62.1 %; RBC 4.84 mil/uL (4.50-6.00); RDW-CV 20.2 % (10.5-14.5); WBC 7.9 thou/uL (4.0-11.0)
[2021-03-17] MEDS ORDERED: WARFARIN SODIUM5 MG PO (12:51)
[2021-03-17] MEDS ORDERED: HYDROCODON-ACE1 EAC7 PO (12:52)
[2021-03-17] MEDS ORDERED: TOPROL XL25 MG PO (12:52)
[2021-03-17 13:05] LABS: CALCIUM 8.6 mg/dL (8.5-10.1); CREATININE 1.2 mg/dL (0.6-1.3)
[2021-03-17 13:25] LABS: INR 9.9
[2021-03-17 13:43] LABS: PROTIME > 90.0 Seconds (9.20-11.50)
[2021-03-17 13:46] LABS: ANISOCYTOSIS 1+; MACROCYTES Occasional; PLATELET ESTIMATE ADEQUATE
[2021-03-17 15:40] VITALS: BP 120/66
--- NOTE | 2021-03-18 09:32 | EKG ---
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 Helper: : 1955 Requested By: Geovani Gonzalez Order Number: [id number] MD: Angelo Duran Measurements Intervals [place] Rate: 81 P: -26 MI: 167 QRS: -24 QRSD: 84 T: 50 QT: 404 QTc: 469 Interpretive Statements Sinus rhythm nonspecific st segment changes Borderline left axis deviation Compared to ECG 05/12/2019 14:07:46 Right bundle-branch block no longer present Electronically Signed On 03-18-2021 9:32:33 MAGNETIC TESTING TECHNICIAN by Angelo Duran [email or web address] <ELECTRONICALLY SIGNED> By: Angelo Duran MD, FACC 03/18/21 0932 1235 1235 Angelo Duran MD, [facility] /EPI
== END 2021-03-17 15:44 | disposition left against medical advice (07) ==
LOC: M.ERS 12:32
PROVIDERS: Emergency Medicine
DX: R07.89 Other chest pain (principal); E78.5 Hyperlipidemia, unspecified; Z79.82 Long term (current) use of aspirin; Z79.899 Other long term (current) drug therapy

== ENCOUNTER → 2021-03-20 | Outpatient (CLI) | payer OTHER, MEDICAID ==
[~2021-03-20] MED LIST changes: +HYDROCODON-ACE1 EAC7 PO; +TOPROL XL25 MG PO; +WARFARIN SODIUM5 MG PO
== END ==
LOC: M.MRI 12:30
PROVIDERS: ATTEND Physical Medicine & Rehabilitation
DX: M47.22 Other spondylosis with radiculopathy, cervical region (principal); M50.11 Cervical disc disorder with radiculopathy, high cervical region; M48.02 Spinal stenosis, cervical region; M47.813 Spondylosis without myelopathy or radiculopathy, cervicothoracic region

== ENCOUNTER → 2021-03-25 | Outpatient (CLI) | payer OTHER, MEDICAID ==
[~2021-03-25] MED LIST changes: +CYCLOBENZAPRINE5 MG PO
== END | disposition home or self-care (01) ==
LOC: M.PC 09:20
PROVIDERS: ATTEND Physical Medicine & Rehabilitation
DX: M50.10 Cervical disc disorder with radiculopathy, unspecified cervical region (principal); M47.22 Other spondylosis with radiculopathy, cervical region; M48.02 Spinal stenosis, cervical region; M54.59 Other low back pain; M51.16 Intervertebral disc disorders with radiculopathy, lumbar region; M43.16 Spondylolisthesis, lumbar region; M47.26 Other spondylosis with radiculopathy, lumbar region; M79.605 Pain in left leg; I10 Essential (primary) hypertension; E11.9 Type 2 diabetes mellitus without complications; I25.10 Atherosclerotic heart disease of native coronary artery without angina pectoris; E78.5 Hyperlipidemia, unspecified; I48.91 Unspecified atrial fibrillation; I25.2 Old myocardial infarction; Z98.890 Other specified postprocedural states; Z79.899 Other long term (current) drug therapy; Z79.01 Long term (current) use of anticoagulants